=== PATIENT | female | born 1955 | race Caucasian/White ===

== ENCOUNTER 2019-01-01 21:37 | Emergency (ER) | payer OTHER, SELFPAY ==
[2019-01-01] MEDS ORDERED: Sodium Bicarb 50 MEQ/50 ML VIAL ONE ×3 (21:59→22:00)
[2019-01-01] MEDS ORDERED: Calcium Chloride 1 GM/10 ML Abboject SYRINGE ONE (22:00)
[2019-01-01] MEDS ORDERED: EPINEPHrine 1 MG/10 ML Abboject SYRINGE ONE (22:00)
[2019-01-01] MEDS ORDERED: Atropine Sulfate 1 mg/10 ml Syringe ONE (22:00)
[2019-01-01 22:04] LABS: Actual Bicarbonate (HCO3a) 27.6 mEq/L (22-28); Analyzer IN Cardio ER; Base Excess (BEa) -9.8 mEq/L (-2.0 to +3.0); Calcium, Ionized 1.09 mmol/L (1.12-1.30); Carboxyhemoglobin (COHb) 0.2 gm% (0.0-3.0); Hemoglobin (Hb) 12.8 g/dL (12.0-16.0); Potassium - ABG Lab 4.28 mmol/L (3.70-5.30)
[2019-01-01 22:06] LABS: CO2 Tension 168.4 mmHg (35.0-45.0); O2 Tension (PaO2) 512.8 mmHg (> 80.0); Puncture Site FEMORAL; pH, Arterial 6.83 (7.35-7.45)
[2019-01-01 22:10] LABS: Hemoglobin 11.7 g/dL (12.0-16.0); Mean Corpuscular HGB CONC 30.2 g/dL (32.0-36.0); Mean Corpuscular Volume 96.2 fL (78.0-98.0); Mean Platelet Volume 7.7 fL (7.4-10.4); Platelet Count 255 thou/uL (130-400); RBC Distribution Width 13.4 % (11.5-14.5); Red Blood Cell (RBC) Count 4.04 mill/uL (4.20-5.40); White Blood Cell (WBC) Count 13.8 thou/uL (4.8-10.8)
[2019-01-01 22:15] LABS: INR-International Normal Ratio 1.4
[2019-01-01 22:16] LABS: PTT 47.6 SEC (22.9-36.1)
[2019-01-01 22:23] LABS: ALT (SGPT) 187 U/L (8-55); AST (SGOT) 221 U/L (5-34); Alkaline Phosphatase 100 U/L (40-150); Anion Gap 32 mmol/L (10-20); BUN (Urea Nitrogen) 18 mg/dL (9.8-20.1); Bilirubin, Total Less than 0.2 mg/dL (0.2-1.2); Calc. Creatinine Clearance 0 mL/min (70-130); Calcium 9.6 mg/dL (7.8-10.44); Carbon Dioxide 15 mmol/L (23-31); Chloride 101 mmol/L (98-107); Estimated GFR-MDRD 42; Globulin 2.5 g/dL (2.4-3.5); Glucose 216 mg/dL (80-115); Potassium 4.4 mmol/L (3.5-5.1); Protein, Total 5.5 g/dL (6.0-8.3); Sodium 144 mmol/L (136-145)
[2019-01-01 22:25] LABS: Band 1 % (5-11); Lymphocytes 29 % (21-51); MDiff Complete? YES; Monocytes 9 % (0-10); Neutrophil 51 % (42-75); Platelet Morphology Comment Appears Adequate; RBC Morphology Normal; Reactive Lymphocytes 10 % (0-10)
== END 2019-01-02 22:01 | disposition expired ==
LOC: ERS 21:37
DX: I46.9 Cardiac arrest, cause unspecified (principal)
CPT/HCPCS: 80053; 82805; 85025; 85610; 85730; 86850; 86900; 86901; 93005; 94760; 96374; 96375; J0171; J0461